=== PATIENT | female | born 1965 | race Hispanic/Latino ===

== ENCOUNTER 2017-12-18 15:29 | Emergency (ER) | payer MEDICAID, MEDICARE ==
[2017-12-18 15:36] VITALS: BP 115/88
--- NOTE | 2017-12-18 16:06 | Emergency Department Report ---
HPI - General Chief Complaint: Pain General Time Seen by Provider: 12/18/17 15:54 - HPI HPI: 52 yo presents with diffuse body aches after vigorous work out. She has abdominal strain, neck pain and back pain. Pain is moderate in severity. She has started a new workout regimen at [employer]. No paresthesias. No paralysis. Ms. Phillips recently moved from [facility]. She was originally followed by neurologist and pain management physician that area. 2 days ago she ran out of Lortab medication. She borrowed Percocet medication from a friend yesterday. She requests referral to neurologist in [facility] near the hospital. She has limited transportation. She moved to live closer to her brother. ED Past Medical Hx - Past Medical History Hx Hypertension: Yes Hx Diabetes: Yes Hx Psychiatric Treatment: Yes (schizophernic) Additional medical history: ms - Surgical History Hx Cholecystectomy: Yes Additional Surgical History: hernia - Social History Smoking Status: Current Every Day Smoker Substance Use Type: Alcohol ED Review of Systems ROS: Stated complaint: NECK/LOWER BACK PAIN Other details as noted in HPI Comment: All other systems reviewed and negative Constitutional: denies: chills, malaise Respiratory: denies: cough Cardiovascular: denies: chest pain Physical Exam - Physical Exam Vital Signs: Vital Signs 12/18/17 15:34 Temperature 98.2 F Pulse Rate 96 H Respiratory 18 Rate Blood Pressure 115/88 O2 Sat by Pulse 98 Oximetry Physical Exam: General: Well-appearing, no acute distress she appears comfortable HEENT: Normocephalic atraumatic pupils equal round and reactive to light anicteric sclera Nose: no rhinorrhea Oropharynx: Clear mucous membranes no lesions Neck: supple, no meningismus Chest: Clear to auscultation bilaterally no rales rhonchi no wheezes Cardiac: Regular rate and rhythm no murmurs no rubs no gallops Abdomen: Soft nontender nondistended positive bowel sounds no guarding Extremities: No cyanosis no clubbing no edema Neuro: Moves all extremities 4, no gross deficits, nl gait Psychiatric: Alert and oriented 4 normal aspect normal judgment normal inside ED Course Vital Signs 12/18/17 15:34 Temperature 98.2 F Pulse Rate 96 H Respiratory 18 Rate Blood Pressure 115/88 O2 Sat by Pulse 98 Oximetry ED Medical Decision Making - Medical Decision Making Ms. Phillips has history of multiple sclerosis. Fortunately, she is not experiencing MS flare. She has diffuse body aches due to vigorous new exercise regimen. Unfortunately she has no access to a pain management physician in this area. She requested referral to neurologist. I provided referral. She received 1 dose of Percocet in the ED. Critical care attestation.: If time is entered above; I have spent that time in minutes in the direct care of this critically ill patient, excluding procedure time. ED Disposition Clinical Impression: Body aches, Multiple sclerosis Disposition: DC-01 TO HOME OR SELFCARE Is pt being admited?: No Does the pt Need Aspirin: No Condition: Stable Instructions: Musculoskeletal Pain (ED) Referrals: MAIDA PENDLETON MD [Staff Physician] - 3-5 Days Time of Disposition: 16:11
[2017-12-18] MEDS ORDERED: PERCOCET 5/325 PO ONE (16:12)
== END 2017-12-18 16:25 | disposition home or self-care (01) ==
LOC: ED 15:29
DX: G35 Multiple sclerosis (principal); M79.1 Myalgia; I10 Essential (primary) hypertension; E11.9 Type 2 diabetes mellitus without complications
CPT/HCPCS: 99282

== ENCOUNTER 2018-04-09 18:44 | Emergency (ER) | payer MEDICARE ==
[2018-04-09 19:07] VITALS: BP 124/90
== END 2018-04-09 22:40 | disposition left against medical advice (07) ==
LOC: ED 18:44
DX: Z53.21 Procedure and treatment not carried out due to patient leaving prior to being seen by health care provider (principal)